=== PATIENT | female | born 1985 | race Caucasian/White ===

== ENCOUNTER 2020-01-30 14:42 | Inpatient (IN) | payer BC, OTHER ==
[2020-01-30] MEDS ORDERED: Lactated Ringers 1000 ML Bag* 1,000 ML IV ONE (15:45)
[2020-01-30] MEDS ORDERED: Buffered Lidocaine 1% SYRIN* 1 ML/SYRINGE INTRADERM ONE (15:45)
--- NOTE | 2020-01-30 16:01 | HP ---
General Information - Reason for Visit Pt presents with ctx since about 1030, getting stronger. - General Information Maternal Age: 34 Grav: 2 Para: 0 SAB: 1 IEA: 0 Estimated Due Date: 02/03/20 Determined By: LMP Gestational Age in Weeks/Days: 39+3 Maternal Blood Type and Rh: O Positive - Results this Serology/RPR Result: Non-Reactive Rubella Result: Immune HBsAg Result: Negative HIV Result: Negative GBS Culture Result: Negative Past Medical History Delivery History: See Records - Pertinent Past Medical History: See Records - hypothyroidism, ADHD Pertinent Past Surgical History: See Records - L4/L5 microdiscectomy, nasal septoplasty Pertinent Family History: Non-Contributory - Antepartal Records Antepartal Records: Reviewed, Complicated by: - AMA, normal NIPT Review of Systems Constitutional: Uncomfortable CV Complaint: No Respiratory: Shortness of Breath: No Gastrointestinal: No Nausea/Vomiting, Normal Bowel Movement Genitourinary: No Dysuria, No Bleeding, No Leaking Fluid Musculoskeletal: Contractions Movement: Normal Exam Allergies/Adverse Reactions: Allergies No Known Allergies Allergy (Verified 01/30/20 15:05) T99.2, P74, BP 119/89 - Measurements Height: 5 ft 3.5 in Weight: 207 lb Weight in lbs: [phone] Body Mass Index (BMI): 36.1 Pre- Weight: 162 lb Weight Gained This : 45 lbs and 0 ozs - Exam Breast: Breast Exam Deferred CVA: No CVA Tenderness Extremities: No Edema Heart: Normal Rhythm/Heart Sounds Lungs: Clear Bilaterally Rectal: Rectal Exam Deferred - Abdominal Exam Abdomen Exam: Non-Tender, Fundal Height Consistent with Dates - Ultrasound/Biophysical Profile Ultrasound Status: Not Done Targeted Exam Findings Estimated Weight: 7lb 14oz Cervical Exam: 4cm Effacement: 80% Station: -1 Presenting Part: Vertex Membrane Status: Intact Bleeding/Discharge: None EFM Findings - External Monitor Findings Baseline Heart Rate: 130 External Monitor Findings: Accelerations Present, No Pattern of Variable or Late Decelerations, Variability Moderate, Baseline Stable Contractions: Regular, Moderate Contraction Frequency: Q3-4 min Assessment/Plan - Assessment 39+3 wks getting into active labor, very reassuring status. Generally uncomplicated . Discussed pain mgmt plans, hoping to avoid epidural at this point. Will place IV and get routine labs, plan to AROM once she gets to 4-5 cm. - Plan Plan: Admit - Anticipate Vaginal Delivery - Date/Time of Admission Date of Admission: 01/30/20 Time of Admission: 16:00
[2020-01-30 16:06] LABS: ABS Basophils 0.1 10^3/ul (0-0.2); ABS Lymphocytes 1.8 10^3/ul (1.0-4.8); ABS Monocytes 0.7 10^3/ul (0-0.8); ABS Neutrophils 5.6 10^3/ul (1.5-7.7); Eosinophil % 0.5 %; Hematocrit 38 % (35-47); Hemoglobin 13.7 g/dL (12.0-16.0); Lymphocyte % 21.7 %; Mean Corpuscular HGB Conc 36 g/dL (31-36); Mean Corpuscular Hemoglobin 34 pg (27-31); Mean Corpuscular Volume 94 fL (80-97); Mean Platelet Volume 9.9 fL (7.4-10.4); Nucleated Red Blood Cells % 0.1; Platelet Count 143 10^3/uL (150-450); Red Blood Count 4.07 10^6 /uL (3.70-4.87); Red Cell Distribution Width 13 % (10-15); White Blood Count 8.1 10^3/uL (3.5-10.8)
[2020-01-30 18:31] LABS: Urine Benzodiazepine Screen None Detected (None Detect); Urine Opiates Screen None Detected (None Detect)
[2020-01-30] MEDS ORDERED: OBEPIDURAL* 250 ML EPIDURAL ONE (21:04)
[2020-01-30] MEDS ORDERED: Phenylephrine 40 MCG/ML SYRINGE IV PUSH PRN (21:09)
[2020-01-30] MEDS ORDERED: Famotidine TAB* 20 MG PO PRN (21:09)
[2020-01-30] MEDS ORDERED: EPHEDrine (Pressors)* 50 MG/ML VIAL IV PUSH PRN (21:09)
[2020-01-30] MEDS ORDERED: Sodium Citrate/Citric Acid* 15 ML UDC PO PRN (21:09)
[2020-01-30] MEDS: Lactated Ringers 1000 ML Bag* 1,000 ML IV SCH ×2 (21:40→23:50)
[2020-01-30] MEDS ORDERED: OBEPIDURAL* 250 ML EPIDURAL SCH (22:00)
[2020-01-30] MEDS ORDERED: Oxytocin in LR* 20 UNITS/1,000 ML BAG IVPB SCH (23:45)
[2020-01-31] MEDS ORDERED: Acetaminophen TAB* 325 MG PO PRN (06:20)
--- NOTE | 2020-01-31 06:30 | PROCNOTE ---
[facility] [place] [facility] OB: Delivery Note - Delivery A Date of : 01/31/20 Time of : 05:53 Sex: Female Weight at : 7 lb 10 oz Score 1 Minute: 9 Score 5 Minutes: 9 Gestational Age in Weeks and Days at Delivery: 39 Weeks and 4 Days Delivery Method: Spontaneous Vaginal Labor: Spontaneous Did Patient attempt ?: N/A, No Previous Amniotic Fluid: Clear Estimated Blood Loss: 350 Anesthesia/Analgesia: CEI for Labor Delivered By: Adrian Otero - Nursery Level of Nursery: Regular/Bedside - Perineum Perineal Injury: Right Mediolateral Perineal Repair: By Delivering Practioner - Events Delivery Events of Note: Pitocin During Labor - Additional Delivery Notes Additional Delivery Notes: Pt presented at 39 wks in early labor. She progressed well, AROM with clear fluid. She received an epidural and then progressed steadily to C/C/+1. She pushed for nearly 3 hours to deliver the head in a controlled fashion in the direct OP position over a small mediolateral episiotomy. Anterior shoulder and arm delivered, and body followed. placed on abdomen, excellent tone and good cry. Cord doubly clamped and cut by father. IV pitocin increased. Cord blood collected. Intact placenta delivered spontaneously. Good fundal tone, minimal bleeding. Episiotomy with small extension repaired with 3-0 Vicryl Rapide.
[2020-01-31] MEDS ORDERED: Lidocaine 1% INJ* 10 MG/ML 30 ML SDV ONE (06:47)
[2020-01-31] MEDS ORDERED: Oxytocin in LR* 20 UNITS/1,000 ML BAG IVPB SCH (07:00)
[2020-01-31] MEDS ORDERED: Lactated Ringers 1000 ML Bag* 1,000 ML IV SCH (07:00)
[2020-01-31] MEDS: Ibuprofen TAB* 600 MG PO PRN ×3 (11:12→23:25)
[2020-01-31] MEDS: Docusate CAP* 100 MG PO SCH ×3 (11:12→23:26)
[2020-01-31] MEDS: Witch Hazel PAD* JAR TOPICAL PRN (11:13)
[2020-01-31] MEDS: Dibucaine 1% 28.35 GM TUBE PR PRN (11:13)
[2020-01-31] MEDS: Levothyroxine TAB* 125 MCG TAB PO SCH (14:18)
[2020-02-01] MEDS: Ibuprofen TAB* 600 MG PO PRN ×3 (05:09→19:42)
[2020-02-01 05:54] LABS: ABS Eosinophils 0.1 10^3/ul (0-0.6); ABS Monocytes 0.7 10^3/ul (0-0.8); ABS Neutrophils 5.2 10^3/ul (1.5-7.7); Eosinophil % 0.8 %; Hematocrit 36 % (35-47); Hemoglobin 12.7 g/dL (12.0-16.0); Lymphocyte % 25.5 %; Mean Corpuscular HGB Conc 36 g/dL (31-36); Mean Corpuscular Hemoglobin 34 pg (27-31); Mean Corpuscular Volume 95 fL (80-97); Mean Platelet Volume 9.2 fL (7.4-10.4); Platelet Count 128 10^3/uL (150-450); Red Blood Count 3.75 10^6 /uL (3.70-4.87); Red Cell Distribution Width 13 % (10-15)
[2020-02-01] MEDS: Levothyroxine TAB* 125 MCG TAB PO SCH (06:21)
[2020-02-01] MEDS ORDERED: Ferrous Gluconate TAB* 324 MG TAB PO SCH (09:00)
[2020-02-01] MEDS: Docusate CAP* 100 MG PO SCH ×3 (12:08→19:42)
[2020-02-01] MEDS: Witch Hazel PAD* JAR TOPICAL PRN (19:43)
[2020-02-01] MEDS: Dibucaine 1% 28.35 GM TUBE PR PRN (19:43)
[2020-02-02] MEDS: Ibuprofen TAB* 600 MG PO PRN ×2 (02:01→07:48)
[2020-02-02] MEDS: Levothyroxine TAB* 125 MCG TAB PO SCH (06:25)
[2020-02-02] MEDS: Docusate CAP* 100 MG PO SCH (07:48)
[2020-02-02] MEDS: Simethicone TAB* 80 MG TAB.CHEW PO SCH (09:29)
[2020-02-02 09:34] VITALS: BP 135/88
== END 2020-02-02 10:54 | disposition home or self-care (01) | DRG 560 ==
LOC: MCHOBOUT 14:42 → MCHOB 15:44
PROVIDERS: ADMIT Obstetrics & Gynecology; ATTEND Obstetrics & Gynecology
PROC: 10E0XZZ Delivery of Products of Conception, External Approach (ICD-10-PCS; principal; 2020-01-31)
PROC: 10907ZC Drainage of Amniotic Fluid, Therapeutic from Products of Conception, Via Natural or Artificial Opening (ICD-10-PCS; 2020-01-31)
PROC: 0W8NXZZ Division of Female Perineum, External Approach (ICD-10-PCS; 2020-01-31)
DX: O99.284 Endocrine, nutritional and metabolic diseases complicating childbirth (principal); Z37.0 Single live birth; E03.9 Hypothyroidism, unspecified; Z3A.39 39 weeks gestation of pregnancy
CPT/HCPCS: 36415; 80307; 85025; 86850; 86900; 86901; A9270-GY; G0480